=== PATIENT | male | born 1945 | race Two or more races ===

== ENCOUNTER 2018-04-15 14:12 | Outpatient (CLI) | payer OTHER ==
[~2018-04-15 14:12] MED LIST: B-COMPLEX W/1 TAB.SA; BACLOFEN10 MG PO; CLARITIN10 MG PO; CLONAZEPAM1 MG; CLONAZEPAM1 MG PO; CLONAZEPAM1 MG/TAB PO; FOLIC ACID0.8 MG; FOLIC ACID1 MG PO; INTEGRA PLUS C1 EACH PO; MOTRIN50 MG PO; NEURONTIN300 MG PO; Neurin-Sl Tablet Sl SL; Neurontin PO; PRILOSEC20 MG; PRILOSEC20 MG PO; SULINDAC200 MG; TOPROL XL25 M1; TOPROL XL25 M1 PO; TRAMADOL HCL50 MG; TUSSIORGANIDIN DM; VYTORIN 10/20 M1 TAB; ZANAFLEX2 M1; ZITHROMAX500 MG PO; [UNRECOGNIZED DRUG - CODE]
== END 2018-04-15 15:14 | disposition home or self-care (01) ==
LOC: RAD 501 14:12
DX: M22.41 Chondromalacia patellae, right knee (principal); M22.42 Chondromalacia patellae, left knee

== ENCOUNTER 2018-04-17 14:47 | Outpatient (CLI) | payer OTHER | END 2018-04-17 15:46 | disposition home or self-care (01) | LOC: SONOGRAMA 14:47 | DX: E05.90 Thyrotoxicosis, unspecified without thyrotoxic crisis or storm (principal) ==

== ENCOUNTER 2018-04-20 14:25 | Outpatient (CLI) | payer OTHER | END 2018-04-20 14:32 | disposition home or self-care (01) | LOC: MRI 14:25 | DX: M48.06 Spinal stenosis, lumbar region (principal) | CPT/HCPCS: 72148 ==

== ENCOUNTER 2018-05-18 13:23 | Outpatient (CLI) | payer OTHER ==
[2018-06-02] MEDS ORDERED: SINGULAIR10 MG PO (14:00)
[2018-06-02] MEDS ORDERED: CALCITONIN-SAL3.7 ML PO (14:00)
[2018-06-02] MEDS ORDERED: TAMS0.4C PO (14:01)
[2018-06-02] MEDS ORDERED: GEMFIBROZIL600 MG PO (14:01)
[2018-06-02] MEDS ORDERED: CLONAZEPAM0.5 MG PO (14:02)
[2018-06-02] MEDS ORDERED: CIMBALTA PO (14:02)
== END 2018-05-18 13:39 | disposition home or self-care (01) ==
LOC: RAD 13:23
DX: M48.06 Spinal stenosis, lumbar region (principal); M48.07 Spinal stenosis, lumbosacral region; D68.8 Other specified coagulation defects

== ENCOUNTER → 2018-05-20 10:15 | Outpatient (CLI) | payer OTHER ==
[~2018-05-20 10:15] MED LIST changes: +CALCITONIN-SAL3.7 ML PO; +CIMBALTA PO; +CLONAZEPAM0.5 MG PO; +GEMFIBROZIL600 MG PO; +SINGULAIR10 MG PO; +TAMS0.4C PO
== END | disposition home or self-care (01) ==
LOC: LAB 10:15
DX: M48.07 Spinal stenosis, lumbosacral region (principal); D68.8 Other specified coagulation defects

== ENCOUNTER 2018-06-05 08:57 | Day surgery (SDC) | payer OTHER | END 2018-06-05 17:50 | disposition home or self-care (01) | LOC: CIR.AMB 08:57 | DX: M48.062 Spinal stenosis, lumbar region with neurogenic claudication (principal); M48.07 Spinal stenosis, lumbosacral region ==

== ENCOUNTER → 2018-08-31 | Outpatient (CLI) | payer OTHER | END | disposition home or self-care (01) | LOC: TOM 12:55 | DX: M54.5 Low back pain (principal) ==

== ENCOUNTER 2020-05-11 14:58 | Outpatient (CLI) | payer OTHER | END 2020-05-11 15:02 | disposition home or self-care (01) | LOC: RAD 14:58 | PROVIDERS: ATTEND Physical Medicine & Rehabilitation | DX: M22.41 Chondromalacia patellae, right knee (principal); M22.42 Chondromalacia patellae, left knee ==

== ENCOUNTER 2021-08-20 13:16 | Outpatient (CLI) | payer OTHER | END 2021-08-20 14:06 | disposition home or self-care (01) | LOC: RAD 13:16 | PROVIDERS: ATTEND Physical Medicine & Rehabilitation | DX: M54.2 Cervicalgia (principal); M17.0 Bilateral primary osteoarthritis of knee ==

== ENCOUNTER 2021-09-25 10:50 | Outpatient (CLI) | payer OTHER | END 2021-09-25 12:51 | disposition home or self-care (01) | LOC: MRI 10:50 | PROVIDERS: ATTEND Physical Medicine & Rehabilitation | DX: M48.02 Spinal stenosis, cervical region (principal); M54.12 Radiculopathy, cervical region; M54.2 Cervicalgia | CPT/HCPCS: 72141 ==

== ENCOUNTER 2022-09-05 11:06 | Outpatient (CLI) | payer OTHER | END 2022-09-05 11:14 | disposition home or self-care (01) | LOC: RAD 11:06 | PROVIDERS: ATTEND Physical Medicine & Rehabilitation | DX: M17.0 Bilateral primary osteoarthritis of knee (principal); M16.11 Unilateral primary osteoarthritis, right hip ==

== ENCOUNTER 2022-10-29 11:15 | Outpatient (CLI) | payer OTHER | END 2022-10-29 11:27 | disposition home or self-care (01) | LOC: MRI 11:15 | PROVIDERS: ATTEND Physical Medicine & Rehabilitation | DX: M54.50 Low back pain, unspecified (principal); M54.16 Radiculopathy, lumbar region | CPT/HCPCS: 72148 ==

== ENCOUNTER 2022-11-08 11:19 | Outpatient (CLI) | payer OTHER | END 2022-11-08 11:23 | disposition home or self-care (01) | LOC: RAD 11:19 | PROVIDERS: ATTEND Orthopaedic Surgery | DX: M54.2 Cervicalgia (principal) ==

== ENCOUNTER 2023-01-28 07:34 | Outpatient (CLI) | payer OTHER | END 2023-01-28 07:42 | disposition home or self-care (01) | LOC: LAB 07:34 | PROVIDERS: ATTEND Orthopaedic Surgery | DX: D64.89 Other specified anemias (principal); E88.89 Other specified metabolic disorders; D68.8 Other specified coagulation defects; N39.0 Urinary tract infection, site not specified; A49.02 Methicillin resistant Staphylococcus aureus infection, unspecified site; E11.9 Type 2 diabetes mellitus without complications; Z76.89 Persons encountering health services in other specified circumstances; I49.9 Cardiac arrhythmia, unspecified; I10 Essential (primary) hypertension ==

== ENCOUNTER 2023-02-06 12:50 | Outpatient (CLI) | payer OTHER ==
[2023-02-07] MEDS ORDERED: [UNRECOGNIZED DRUG - OTHER] (08:05)
== END 2023-02-06 13:01 | disposition home or self-care (01) ==
LOC: RAD 12:50
PROVIDERS: ATTEND Orthopaedic Surgery
DX: M16.11 Unilateral primary osteoarthritis, right hip (principal); M79.651 Pain in right thigh

== ENCOUNTER 2023-02-06 14:37 | Inpatient (IN) | payer OTHER ==
[~2023-02-06] VITALS: Ht 170.2 cm; Wt 82.6 kg
[2023-02-07] MEDS ORDERED: [UNRECOGNIZED DRUG - OTHER] (08:05)
[2023-02-11] MEDS ORDERED: CYMBALTA60 MG PO (14:25)
[2023-02-11] MEDS ORDERED: CRESTOR20 MG (14:27)
[2023-02-11] MEDS ORDERED: STIOLTO RESPIMAT4 GM (14:28)
== END 2023-02-14 20:33 | disposition home or self-care (01) | DRG 470 ==
LOC: SURG 02-11 05:50 → O/R 02-11 05:50 → SURH 02-11 07:00 → SURG 02-11 15:11 → O/R 02-13 12:30 → SURG 02-13 12:31
PROVIDERS: ADMIT Orthopaedic Surgery; ATTEND Orthopaedic Surgery
PROC: 0SR902A Replacement of Right Hip Joint with Metal on Polyethylene Synthetic Substitute, Uncemented, Open Approach (ICD-10-PCS; principal; 2023-02-11 07:00)
DX: M16.11 Unilateral primary osteoarthritis, right hip (principal); D62 Acute posthemorrhagic anemia; I12.9 Hypertensive chronic kidney disease with stage 1 through stage 4 chronic kidney disease, or unspecified chronic kidney disease; N18.9 Chronic kidney disease, unspecified; J44.9 Chronic obstructive pulmonary disease, unspecified; E78.00 Pure hypercholesterolemia, unspecified

== ENCOUNTER 2023-07-30 13:21 | Outpatient (CLI) | payer OTHER ==
[~2023-07-30 13:21] MED LIST changes: +CRESTOR20 MG; +CYMBALTA60 MG PO; +STIOLTO RESPIMAT4 GM; +[UNRECOGNIZED DRUG - OTHER]
== END 2023-07-30 13:26 | disposition home or self-care (01) ==
LOC: RAD 13:21
PROVIDERS: ATTEND Physical Medicine & Rehabilitation
DX: M25.551 Pain in right hip (principal); M17.12 Unilateral primary osteoarthritis, left knee; M25.562 Pain in left knee

== ENCOUNTER → 2023-08-25 | Outpatient (CLI) | payer OTHER | END | disposition home or self-care (01) | LOC: RAD 13:47 | PROVIDERS: ATTEND Physical Medicine & Rehabilitation | DX: M16.12 Unilateral primary osteoarthritis, left hip (principal) ==

== ENCOUNTER 2023-12-08 13:14 | Outpatient (CLI) | payer OTHER | END 2023-12-08 13:16 | disposition home or self-care (01) | LOC: NUCLEAR 13:14 | PROVIDERS: ATTEND Orthopaedic Surgery | DX: M81.0 Age-related osteoporosis without current pathological fracture (principal) ==

== ENCOUNTER 2023-12-09 11:05 | Outpatient (CLI) | payer OTHER ==
[2023-12-09 13:08] LABS: ALBUMIN 3.8 gm/dL (3.4-5.0); BILIRUBIN TOTAL 0.56 mg/dL (0.3-1.2); CALCIUM 9.4 mg/dL (8.5-10.1); CREATININE SERUM 1.77 mg/dL (0.70-1.30); GFR 37.49; GLOBULINA 3.3 G/DL (2.4-3.5); PHOSPHOROUS 3.2 mg/dL (2.5-4.9); POTASSIUM 4.26 mEq/L (3.5-5.1); TOTAL PROTEIN 7.1 gm/dL (6.4-8.2)
[2023-12-11 13:07] LABS: CALCIUM IONIZED 5.1 mg/dL (4.5-5.6)
== END 2023-12-09 11:06 | disposition home or self-care (01) ==
LOC: LAB 11:05
PROVIDERS: ATTEND Orthopaedic Surgery
DX: M85.9 Disorder of bone density and structure, unspecified (principal); E55.9 Vitamin D deficiency, unspecified; E56.1 Deficiency of vitamin K; E21.3 Hyperparathyroidism, unspecified; M81.8 Other osteoporosis without current pathological fracture; E88.9 Metabolic disorder, unspecified

== ENCOUNTER 2023-12-31 10:33 | Outpatient (CLI) | payer OTHER | END 2023-12-31 10:48 | disposition home or self-care (01) | LOC: SONOGRAMA 10:33 | PROVIDERS: ATTEND Orthopaedic Surgery | DX: M25.552 Pain in left hip (principal); M70.62 Trochanteric bursitis, left hip; M76.02 Gluteal tendinitis, left hip ==

== ENCOUNTER 2024-04-16 11:51 | Outpatient (CLI) | payer OTHER | END 2024-04-16 12:02 | disposition home or self-care (01) | LOC: MRI 11:51 | PROVIDERS: ATTEND Physical Medicine & Rehabilitation | DX: M25.562 Pain in left knee (principal) | CPT/HCPCS: 73721 ==

== ENCOUNTER 2024-04-21 10:40 | Outpatient (CLI) | payer OTHER | END 2024-04-21 10:46 | disposition home or self-care (01) | LOC: NUCLEAR 10:40 | PROVIDERS: ATTEND Physical Medicine & Rehabilitation | DX: I87.2 Venous insufficiency (chronic) (peripheral) (principal); I82.403 Acute embolism and thrombosis of unspecified deep veins of lower extremity, bilateral ==

== ENCOUNTER 2024-10-12 13:38 | Outpatient (CLI) | payer OTHER | END 2024-10-12 13:44 | disposition home or self-care (01) | LOC: RAD 13:38 | PROVIDERS: ATTEND Physical Medicine & Rehabilitation | DX: M17.11 Unilateral primary osteoarthritis, right knee (principal); M17.12 Unilateral primary osteoarthritis, left knee ==

== ENCOUNTER 2024-10-15 12:51 | Outpatient (CLI) | payer OTHER | END 2024-10-15 12:57 | disposition home or self-care (01) | LOC: RAD 12:51 | DX: M99.01 Segmental and somatic dysfunction of cervical region (principal); M99.02 Segmental and somatic dysfunction of thoracic region; M99.03 Segmental and somatic dysfunction of lumbar region; M99.05 Segmental and somatic dysfunction of pelvic region ==

== ENCOUNTER 2024-12-16 14:03 | Outpatient (CLI) | payer OTHER | END 2024-12-16 14:05 | disposition home or self-care (01) | LOC: RAD 14:03 | PROVIDERS: ATTEND Physical Medicine & Rehabilitation | DX: M76.61 Achilles tendinitis, right leg (principal) ==

== ENCOUNTER 2024-12-30 12:26 | Outpatient (CLI) | payer OTHER | END 2024-12-30 12:28 | disposition home or self-care (01) | LOC: SONOGRAMA 12:26 | PROVIDERS: ATTEND Urology | DX: N40.0 Benign prostatic hyperplasia without lower urinary tract symptoms (principal) ==